=== PATIENT | male | born 1960 | race Caucasian/White ===

== ENCOUNTER → 2021-01-10 | Outpatient (CLI) | payer OTHER | LOC: KOH-I 13:41 | DX: Z12.2 Encounter for screening for malignant neoplasm of respiratory organs (principal); Z87.891 Personal history of nicotine dependence; J84.10 Pulmonary fibrosis, unspecified | CPT/HCPCS: 71271 ==

== ENCOUNTER → 2021-01-12 | Outpatient (CLI) | payer OTHER | LOC: HEART 5 11:24 | DX: R06.02 Shortness of breath (principal); Z87.891 Personal history of nicotine dependence | CPT/HCPCS: 94060; 94729 ==

== ENCOUNTER → 2022-04-23 | Outpatient (CLI) | payer OTHER | LOC: KOH-I 10:56 | DX: Z87.891 Personal history of nicotine dependence (principal) | CPT/HCPCS: 71271 ==